=== PATIENT | female | born 1985 | race Caucasian/White ===

== ENCOUNTER 2018-07-16 00:30 | Emergency (ER) | payer SELFPAY ==
[2018-07-16] MEDS ORDERED: hydrOXYzine HCl 50 MG/ML SDV IM ONE (00:44)
[2018-07-16] MEDS ORDERED: Ketorolac 60 MG/2 ML SDV IM ONE (00:44)
--- NOTE | 2018-07-16 00:51 | EDM.PDOC ---
ED HPI GENERAL MEDICAL PROBLEM - General Chief Complaint: Headache Stated Complaint: MIGRAINE Time Seen by Provider: 07/16/18 00:35 Source of Information: Reports: Patient, Old Records History Limitations: Reports: No Limitations - History of Present Illness INITIAL COMMENTS - FREE TEXT/NARRATIVE: Jana comes into [facility] ED with relapse of migraine headache that began at 3 am yesterday. Sxs occur with early am awakening, throbbing pain overlying the L side of the face and scalp, with nausea and vomiting. She is currently taking Gabapentin for prophylaxis, but 3 tabs were ineffective. There is no LOC, prior hx of head injury, or palpitations. - Related Data Allergies Allergy/AdvReac Type Severity Reaction Status Date / Time No Known Allergies Allergy Verified 07/16/18 00:38 Home Meds: Home Meds Gabapentin [Neurontin] 1 cap PO TID PRN 07/16/18 [History] Past Medical History Neurological History: Reports: Migraines Social & Family History - Caffeine Use Caffeine Use: Reports: Coffee Caffeine Use Comment: daily, coffee ED ROS GENERAL - Review of Systems Review Of Systems: ROS reveals no pertinent complaints other than HPI. - Physical Exam Exam: See Below Exam Limited By: No Limitations General Appearance: Alert, WD/WN, Anxious, Moderate Distress Eye Exam: Bilateral Eye: EOMI, Normal Inspection, PERRL Ears: Normal External Exam, Normal TMs Nose: Normal Inspection Throat/Mouth: Normal Inspection, Normal Lips, Normal Teeth, Normal Oropharynx, Normal Voice Head Exam: Atraumatic, Normocephalic Neck: Normal Inspection, Supple, Non-Tender, Full Range of Motion Respiratory/Chest: No Respiratory Distress, Lungs Clear, Normal Breath Sounds, No Accessory Muscle Use, Chest Non-Tender Cardiovascular: Regular Rate, Rhythm, No Murmur GI/Abdominal: Normal Bowel Sounds, Soft, Non-Tender, No Organomegaly, No Distention, No Mass (Female) Exam: Deferred Rectal (Female) Exam: Deferred Neuro Exam (Abbreviated): Alert, Oriented, CN II-XII Intact, Normal Cognition, No Motor/Sensory Deficits Back Exam: Normal Inspection Extremities: Normal Inspection Psychiatric: Normal Affect, Anxious Skin Exam: Warm, Dry, Intact, Normal Color, No Rash Course - Vital Signs Text/Narrative:: Following assessment, I administered Toradol 60 mg IM and Vistaril 50 mg IM and observed over the next 45 minutes, with improvement in sxs. - Orders/Labs/Meds Orders: Active Orders 24 hr Category Date Time Status Ketorolac [Toradol] Med 07/16/18 00:44 Once 60 mg IM ONETIME ONE hydrOXYzine HCl [Vistaril] Med 07/16/18 00:44 Once 50 mg IM ONETIME ONE Departure - Departure Time of Disposition: 01:25 Disposition: Home, Self-Care 01 Condition: Fair Clinical Impression: Migraine - Discharge Information *PRESCRIPTION DRUG MONITORING PROGRAM REVIEWED*: Not Applicable *COPY OF PRESCRIPTION DRUG MONITORING REPORT IN PATIENT RADHA: Not Applicable Referrals: Becky Medina NP [Primary Care Provider] - - Problem List & Annotations (1) Migraine SNOMED Code(s): 47260845 Code(s): G43.909 - MIGRAINE, UNSP, NOT INTRACTABLE, WITHOUT STATUS MIGRAINOSUS Status: Acute Current Visit: Yes Annotation/Comment:: I suggested NSAIDs, rest, and resume Gabapentin in the am. - Problem List Review Problem List Initiated/Reviewed/Updated: Yes - My Orders Last 24 Hours: My Active Orders 07/16/18 00:44 Ketorolac [Toradol] 60 mg IM ONETIME ONE hydrOXYzine HCl [Vistaril] 50 mg IM ONETIME ONE - Assessment/Plan Last 24 Hours: My Active Orders 07/16/18 00:44 Ketorolac [Toradol] 60 mg IM ONETIME ONE hydrOXYzine HCl [Vistaril] 50 mg IM ONETIME ONE Plan: Follow up with PCP if sxs persist.
[2018-07-16 01:57] VITALS: BP 134/88
== END 2018-07-16 02:00 | disposition home or self-care (01) ==
LOC: FB.ED 00:30
DX: G43.909 Migraine, unspecified, not intractable, without status migrainosus (principal)
CPT/HCPCS: 96372; 99283; J1885; J3410